=== PATIENT | female | born 1955 | race American Indian/Alaskan Native ===

== ENCOUNTER 2018-12-28 08:44 | Outpatient (CLI) | payer OTHER ==
--- NOTE | 2018-12-28 13:26 | Mammography Report ---
DIGITAL SCREENING MAMMOGRAM WITH CAD, 12/28/2018 INDICATION: Routine screening mammography. TECHNIQUE: Digital bilateral 2D mammography was obtained in the craniocaudal and mediolateral obliq ue projections. This examination was interpreted with the benefit of Computer-Aided Detection analysi s. COMPARISON: 12/17/2016 FINDINGS: Breast Density: The breasts are heterogeneously dense, which may obscure small masses. Right asymmetries require additional imaging. No architectural distortion or suspicious calcification s of the right breast. Scattered bilateral benign calcifications. There is no evidence of dominant ma ss, suspicious calcifications or architectural distortion in the left breast. IMPRESSION: Right asymmetries require additional imaging. Recommend recall for right MLO and CC spot magnification views and right breast ultrasound if needed. Follow up recommendation: Special View: Mag Category 0: Incomplete. Needs additional imaging evaluation and/or prior mammograms for comparison. A "normal" or negative report should not discourage follow up or biopsy of a clinically significant f inding. A written summary of these findings will be mailed to the patient. The patient will be entered into a mammography reporting system which will generate a reminder letter for the patient's next appointmen t at the appropriate interval. The [employer] recommends yearly mammograms starting at age 40 and continuing as l fatimah as a woman is in good health. Breast MRI is recommended for women with an approximate 20-25% or greater lifetime risk of breast cancer, including women with a strong family history of breast or ova carmelita cancer or who have been treated for Hodgkin's disease. Signer Name: Uche Ochoa MD Signed: 12/28/2018 1:22 PM Workstation Name: [id number]
== END 2018-12-28 08:45 | disposition home or self-care (01) ==
LOC: MAMMO 08:44
PROVIDERS: ATTEND Family Medicine
DX: Z12.31 Encounter for screening mammogram for malignant neoplasm of breast (principal)
CPT/HCPCS: 77067

== ENCOUNTER 2019-01-23 15:01 | Outpatient (CLI) | payer OTHER ==
--- NOTE | 2019-01-24 15:04 | Mammography Report ---
DIGITAL RIGHT DIAGNOSTIC MAMMOGRAM WITH CAD, 01/23/2019 INDICATION: Recall to evaluate asymmetry. TECHNIQUE: Digital right mammographic imaging was performed. Magnification views were obtained. This examination was interpreted with the benefit of Computer-aided Detection analysis. COMPARISON: 12/28/2018 Breast Density: The breasts are heterogeneously dense, which may obscure small masses. FINDINGS: Lateral and spot magnification MLO and CC views were performed and are negative. No persist ent asymmetry. IMPRESSION: No mammographic evidence of malignancy. Follow up recommendation: Routine BI-RADS Category 2: Benign. A "normal" or negative report should not discourage follow up or biopsy of a clinically significant f inding. A written summary of these findings will be mailed to the patient. The patient will be entered into a mammography reporting system which will generate a reminder letter for the patient's next appointmen t at the appropriate interval. According to the [employer], yearly mammograms are recommended starting at age 40 and continuing as long as a woman is in good health. Breast MRI is recommended for women with an charla roximately 20-25% or greater lifetime risk of breast cancer, including women with a strong family his tory of breast or ovarian cancer and women who have been treated for Hodgkin's disease. Signer Name: Uche Ochoa MD Signed: 01/24/2019 3:00 PM Workstation Name: [id number]
== END 2019-01-23 15:02 | disposition home or self-care (01) ==
LOC: MAMMO 15:01
PROVIDERS: ATTEND Family Medicine
DX: R92.2 Inconclusive mammogram (principal)
CPT/HCPCS: 77066

== ENCOUNTER 2019-02-01 10:35 | Outpatient (CLI) | payer OTHER ==
--- NOTE | 2019-02-01 14:40 | Ultrasound Report ---
LIMITED BILATERAL BREAST ULTRASOUND HISTORY: Recent episode of left bloody nipple discharge COMPARISON: 01/23/2019 and 12/28/2018 mammograms. FINDINGS: Focused sonographic evaluation upon the retroareolar location of the right breast demonstra alvaro mild retroareolar duct ectasia with no mass, cyst or suspicious shadowing. Focused sonographic evaluation upon the retroareolar location of the left breast demonstrates mild re troareolar duct ectasia with no mass, cyst or suspicious shadowing. IMPRESSION: 1. Bilateral benign duct ectasia with no suspicious finding. 2. Recommend consultation with a breast surgeon regarding the left nipple discharge. BIRADS 2: Benign Signer Name: Uche Ochoa MD Signed: 02/01/2019 2:36 PM Workstation Name: [id number]
== END 2019-02-01 10:36 | disposition home or self-care (01) ==
LOC: US 10:35
PROVIDERS: ATTEND Family Medicine
DX: N60.42 Mammary duct ectasia of left breast (principal); N60.41 Mammary duct ectasia of right breast